=== PATIENT | male | born 1940 | race Caucasian/White ===

== ENCOUNTER 2020-10-23 07:25 | Inpatient (IN) | payer MEDICARE, OTHER ==
[~2020-10-23] VITALS: Ht 182.9 cm; Wt 111.4 kg
[~2020-10-23 07:25] MED LIST: COLACE 100100 MG/CAP PO; FLOMAX 0.40.4 MG/CAP PO; GLUCOPHAGE500 MG/TAB PO; HYTRIN 5MG C5 MG/CAP PO; KLOR-CON M2020 MEQ PO; LANTUS100 U/ML SC; LEVAQUIN 5500 MG/TA1 PO; NORCO 325 MG-51 TAB PO; NOVOLOG 100U100 U/M1; NOVOLOG 100U100 U/M1 SC; PRAVACHOL10 MG PO; PRILOSEC 20MG20 MG PO; PRILOTC PO; PRINZIDE 25 MG-1 TAB PO; PYRIDIUM 100MG100 MG PO; PYRIDIUM200 M1 PO; [UNRECOGNIZED DRUG - CODE] SQ
[2020-10-23 08:04] LABS: COLLECTION METHOD CATHETER
[2020-10-23 08:10] LABS: BASO # 0.1 (0.0-0.2); BASO % 0.6 % (0.0-2.0); EOS # 0.1 (0.0-0.7); EOS % 0.7 % (0-4.0); GRAN # 9.8 (1.4-6.5); GRAN % 69.4 % (42.2-75.2); HEMATOCRIT 47.3 % (42.0-52.0); LYMPH # 2.6 (1.2-3.4); LYMPH % 18.7 % (20.0-51.0); MEAN CELL VOLUME 89 fl (80.0-100.0); MEAN CORPUSCULAR HEMOGLOBIN 30 pg (27.0-31.0); MEAN CORPUSCULAR HGB CONC 34 g/dl (33.0-37.0); MEAN PLATELET VOLUME 10.3 fl (7.4-10.4); MONO # 1.4 (0.1-0.6); MONO % 9.8 % (1.7-9.3); PLATELET COUNT 347 K/mm3 (130-400); RED BLOOD COUNT 5.34 M/mm3 (4.20-5.60); REDCELL DISTRIBUTION WIDTH-CV 14.9 % (11.5-14.5)
[2020-10-23 08:30] LABS: TROPONIN-I 0.048 ng/mL (0.000-0.035)
[2020-10-23 08:41] LABS: ALBUMIN 4.2 gm/dL (3.5-5.0); BILIRUBIN,TOTAL 1.7 mg/dL (0.0-1.0); CALCIUM 9.3 mg/dL (8.4-10.2); CREATININE, serum 0.72 (0.66-1.25); MUCOUS Present /lpf; PH 5 (5-8); POTASSIUM 3.6 mmol/L (3.4-5.0); TOTAL PROTEIN 7.6 gm/dL (6.4-8.2); URINE APPEARANCE Cloudy; URINE BACTERIA None Seen /hpf; URINE BILIRUBIN Negative (NEGATIVE); URINE BLOOD 2+ (NEGATIVE); URINE COLOR Amber; URINE GLUCOSE Negative (NEGATIVE); URINE KETONE 1+ (NEGATIVE); URINE LEUKOCYTE ESTERASE 2+ (NEGATIVE); URINE NITRATE Negative (NEGATIVE); URINE PROTEIN(semi-quant) 1+ (NEGATIVE); URINE RBC 20-50 /hpf; URINE UROBILINOGEN >=4.0 mg/dL (NEGATIVE)
[2020-10-23 09:02] LABS: TSH w REFLEX 1.631 uIU/mL (0.350-4.940)
[2020-10-23] MEDS ORDERED: TOPROL XL 25MG25 MG PO (13:40)
[2020-10-23 15:02] VITALS: BP 140/79; PULSE 75; TEMP 97.6
[2020-10-23 16:30] VITALS: BP 152/74; PULSE 76; TEMP 97.9
--- NOTE | 2020-10-23 17:00 | NUR ---
Pt. admitted to room 317. Pt. hard of hearing but able to tell this ticket writer the date, city, and his name. Pt. forgetful of the hospital name. IVF initiated per MAR order. Pt. able to get OOB to commode w/ staff member, high fall risk, pt. back in bed w/ bed alarm on and call light in reach. Pt. oriented to the unit and ate dinner. Needs addressed.
[2020-10-23 20:00] VITALS: BP 153/86; PULSE 77; TEMP 99.2
--- NOTE | 2020-10-23 20:00 | NUR ---
PT ALERT AND ORIENTED X3, NO PAIN REPORTED, DENIES NEEDS AT THIS TIME.
[2020-10-24] VITALS (7 sets, daily range): BP systolic 147–164; BP diastolic 69–84; PULSE 65–77; TEMP 97.4–98.3
--- NOTE | 2020-10-24 07:43 | NUR ---
Pt. progressing w/ plan of care. Phlebotomists were unable to get am labs so far, one more phelbotomist will attempt before asking the RN. Pt. resting in bed, awake. Pt. waiting on breakfast at this moment. Bed alarm on, call light in reach.
--- NOTE | 2020-10-24 12:40 | NUR ---
Initial visit; Patient thanked Medical Registrar for coming in and offering God's blessings.
--- NOTE | 2020-10-24 13:00 | NUR ---
elmira received care from [facility] student from 0700 until 1330 with no noted concerns
--- NOTE | 2020-10-24 13:33 | NUR ---
Multiple phlebotomists and this RN unable to obtain labs on this pt. today. STEVEN Reeves notified, labs cancelled for today. Pt.'s son-in-law Sergio in to visit pt. today. Pt. doing well, he ate breakfast and worked with PT. Bed alarm on, call light in reach.
--- NOTE | 2020-10-24 14:00 | NUR ---
Primary nurse was assisted with [phone] patient care by [facility] [employer] student Sharda Freeman and [facility] [facility] [employer] [employer] instructor Malinda Renteria MSN, RN
--- NOTE | 2020-10-24 15:05 | NUR ---
Button And Buckle Maker met with patient to discuss discharge planning. Patient lives alone in [place] and sees Dr. Waite for primary care. Patient obtains medications from [facility] and denies any DME usage. Patient reports he is independent with ADLS and plans to return home upon discharge. Patient denies having any Advance Directives but reports he has a daughter, Loreta (ph#[phone]) who lives in [facility]. SW discussed patient's recent falls and patient said he has fallen twice as his legs gave out. SW discussed options with patient including rehab and home health. Patient declined both options. SW contacted patient's daughter, Loreta and left a message. Discharge Plan: Home, patient has declined Home Health and Rehab
--- NOTE | 2020-10-24 20:30 | NUR ---
Initial shift assessment done- very pleasant, alert/oriented, speaks slowly- denies pain, Tele on, voiding per urinal
[2020-10-25 04:08] VITALS: BP 154/74; PULSE 69; TEMP 97.9
[2020-10-25 06:40] LABS: HEMATOCRIT 42.3 % (42.0-52.0); MEAN CELL VOLUME 92 fl (80.0-100.0); MEAN CORPUSCULAR HGB CONC 33 g/dl (33.0-37.0); MEAN PLATELET VOLUME 10.2 fl (7.4-10.4); RED BLOOD COUNT 4.61 M/mm3 (4.20-5.60); REDCELL DISTRIBUTION WIDTH-CV 14.9 % (11.5-14.5)
[2020-10-25 06:41] LABS: HEMOGLOBIN 13.9 g/dl (13.5-18.0); MEAN CORPUSCULAR HEMOGLOBIN 30 pg (27.0-31.0); PLATELET COUNT 223 K/mm3 (130-400)
[2020-10-25 06:54] LABS: CALCIUM 8.3 mg/dL (8.4-10.2); CREATININE, serum 0.64 (0.66-1.25); MAGNESIUM 1.9 mg/dL (1.6-2.3); POTASSIUM 3.3 mmol/L (3.4-5.0)
--- NOTE | 2020-10-25 07:00 | NUR ---
Report received from TIFFANIE Vazquez. pT in bed resting, denies needs, will continue to monitor.
[2020-10-25 07:12] VITALS: BP 153/63; PULSE 64; TEMP 98
--- NOTE | 2020-10-25 07:29 | NUR ---
Slept fair during the night-- did get some Desinex ordered for red groin/yessi area-- VSS
--- NOTE | 2020-10-25 10:18 | NUR ---
Pt resting in bed after returning from walk with PT. Pt appears unsteady on his feet without walker. extremely [place], pt states batteries are , exchanged with batteries on donated floor. Student nurse to provide meds, denies pain, will continue to mo nitor.
--- NOTE | 2020-10-25 10:18 | NUR ---
Flatware Maker received a call from patient's son in law, Sergio (ph#[phone]) who advised patient can be stubborn but will likely need rehab. Sergio advised patient has been to [facility] before and would like a referral sent there. WHIT Mishra faxed referral. WHIT updated Medical floor Lucinda SHERMAN.
--- NOTE | 2020-10-25 10:34 | NUR ---
PT is recommending SNF. WHIT met with the patient to discuss their recommendation and the benefits of a short-term rehab stay. The patient was agreeable to rehab. WHIT contacted the patient's son-in-law, Sergio (ph#[phone]), to discuss the above. The patient's daughter, Loreta, is out of the country at this time. Sergio reports that he is in agreement to SNF. He states that the patient has been to [facility] in the past. He chose 1) [facility] 2) [facility]. WHIT contacted and faxed a referral to [facility]. Danica SHERMAN, faxed referral to [facility]. Awaiting screens.
--- NOTE | 2020-10-25 11:20 | NUR ---
Dorita, at [facility], reports that they are able to accept the patient for a skilled stay.
[2020-10-25 13:17] VITALS: BP 147/75; PULSE 69; TEMP 98.8
--- NOTE | 2020-10-25 13:20 | NUR ---
Patient reveived care from Sharda Freeman [facility] nursing director from 0700 until 1330
--- NOTE | 2020-10-25 14:44 | NUR ---
Primary nurse was assisted with [phone] patient care by [employer] student Sharda Freeman and [employer] instructor Malinda Renteria MSN, RN
--- NOTE | 2020-10-25 15:58 | NUR ---
John, at [facility], reports that they do not have a male bed available at this time. WHIT notified Dorita at [facility]. Dorita reports that they can accept the patient. WHIT contacted and updated the patient's son-in-law, Sergio. Sergio is in agreement with the patient going to [facility] tomorrow, 10/26.
[2020-10-25 16:00] VITALS: BP 145/78; PULSE 71; TEMP 98.6
--- NOTE | 2020-10-25 17:48 | NUR ---
Pt up to chair to eat supper this evening. Resting in bed most of day but set off alarm and went to chair. Pt refusing hygeine, did not want to eat supper, states he "just wants to go home". Pt resting between disturbances, has trouble hearing much of anything. Bed and chair alarms on, will ocnitnue to monitor and give bedside shift report to nightshift nurse who will resume care.
[2020-10-25 19:25] VITALS: BP 158/79; PULSE 81; TEMP 99
--- NOTE | 2020-10-25 20:49 | NUR ---
Patient assessed around 1939. Alert, very hard of hearing. Denies pain and discomfort. Peripheral INT to right wrist flushed. Site without redness, warmth, swelling, and pain. Denies SOB and dyspnea. LS CTA. Respirations even and unlabored. HRR. Telemetry in place: normal sinus. Capillary refill less than 3 seconds. Non-tenting skin turgor. BSAx4. Abdomen soft and non-tender. No edema. Excoration/redness to abdominal folds, groin, and bottom. Desenex applied. Using urinal at bedside, urine clear and yellow. Voices no questions, needs, or concerns at this time. Resting in bed with call light within reach. Bed alarm on.
[2020-10-25 23:57] VITALS: BP 148/74; PULSE 64; TEMP 98.7
[2020-10-26 04:26] VITALS: BP 159/67; PULSE 71; TEMP 97.8
--- NOTE | 2020-10-26 05:51 | NUR ---
Patient has been resting in bed with call light within reach. Does not call for assistance. Bed alarm on. Cjid swabbed this morning for placement and given to supervisor laboratory animal facility.
[2020-10-26 07:46] VITALS: BP 139/79; PULSE 71; TEMP 98.6
[2020-10-26 07:47] LABS: HEMATOCRIT 43.1 % (42.0-52.0); HEMOGLOBIN 14.5 g/dl (13.5-18.0); MEAN CELL VOLUME 89 fl (80.0-100.0); MEAN CORPUSCULAR HEMOGLOBIN 30 pg (27.0-31.0); MEAN CORPUSCULAR HGB CONC 34 g/dl (33.0-37.0); MEAN PLATELET VOLUME 10.4 fl (7.4-10.4); RED BLOOD COUNT 4.85 M/mm3 (4.20-5.60); REDCELL DISTRIBUTION WIDTH-CV 14.8 % (11.5-14.5)
[2020-10-26 07:51] LABS: PLATELET COUNT 388 K/mm3 (130-400)
[2020-10-26 08:19] LABS: CALCIUM 8.8 mg/dL (8.4-10.2); CREATININE, serum 0.65 (0.66-1.25); POTASSIUM 3.8 mmol/L (3.4-5.0)
--- NOTE | 2020-10-26 08:30 | NUR ---
Assessment complete. Pt sitting up in chair, alert and appropriate, very hard of hearing which makes assessing orientation difficult. Pt denies pain or c/o. Redness/excoriation to groin region and powder placed per orders. Saline lock IV to right forearm without s/s of complications. Physical assessment otherwise unremarkable. No further needs reported. Call light in reach.
[2020-10-26] MEDS ORDERED: LEVEMIR100 U/ML SQ (10:18)
[2020-10-26] MEDS ORDERED: NOVLOG SQ (10:19)
[2020-10-26 10:53] VITALS: BP 139/79; PULSE 71; TEMP 98.6
[2020-10-26] MEDS ORDERED: OMNICEF 300MG300 MG PO (11:02)
[2020-10-26 11:23] VITALS: BP 136/86; PULSE 75; TEMP 98.3
[2020-10-26] MEDS ORDERED: ASPIRIN 81M81 MG/TA2 PO (12:40)
--- NOTE | 2020-10-26 12:51 | NUR ---
Patient is DC to [facility] today at 01:30 PM SW contact [facility] and fxed updates and CV result. Nothing Follow
--- NOTE | 2020-10-26 13:39 | NUR ---
Report called to [facility] Cari tang, nurse Mónica. Pt discharged to [facility] via WC.
== END 2020-10-26 13:40 | DRG 689 ==
LOC: COL.ER 07:25 → MEDICAL 09:21
PROVIDERS: Emergency Medicine; Physician Assistant; ADMIT Student in an Organized Health Care Education/Training Program
DX: N39.0 Urinary tract infection, site not specified (principal); I21.A1 Myocardial infarction type 2; Z90.49 Acquired absence of other specified parts of digestive tract; Z20.822 Contact with and (suspected) exposure to COVID-19; K21.9 Gastro-esophageal reflux disease without esophagitis; E78.5 Hyperlipidemia, unspecified; E11.9 Type 2 diabetes mellitus without complications; R79.89 Other specified abnormal findings of blood chemistry
CPT/HCPCS: 99222-AI; 99232-AI; 99239; J0696; J1650; J1815; J3475; J7030

== ENCOUNTER → 2023-02-07 | Outpatient (CLI) | payer MEDICARE, OTHER ==
[~2023-02-07] MED LIST changes: +ASPIRIN 81M81 MG/TA2 PO; +DESYREL 50MG50 MG PO; +GLUCOPHAGE1000 MG PO; +JARDIANCE25; +LANTUS SOLOS100 U/ML SQ; +LEVEMIR100 U/ML SQ; +NICODERM C21 MG/PATC TD; +NOVLOG SQ; +NOVOLOG 100U100 U/M1 SQ; +OMNICEF 300MG300 MG PO; +TOPROL XL 25MG25 MG PO
== END ==
LOC: COL.LAB 09:51
DX: Z01.89 Encounter for other specified special examinations (principal)